=== PATIENT | female | born 1945 | race Caucasian/White ===

== ENCOUNTER → 2024-04-01 06:07 | Outpatient (REF) | payer MEDICARE, OTHER, SELFPAY ==
[2024-04-01 11:45] LABS: TSH 2.92 uIU/ml (0.47-4.68)
== END ==
LOC: HWLAB 06:07
PROVIDERS: ATTENDING PHYSICIAN Internal Medicine Geriatric Medicine
DX: E03.9 Hypothyroidism, unspecified (principal); Z79.899 Other long term (current) drug therapy
CPT/HCPCS: 36415; 84439; 84443

== ENCOUNTER → 2024-12-11 06:20 | Outpatient (REF) | payer MEDICARE, OTHER, SELFPAY ==
[2024-12-11 09:40] LABS: % Basophils 0.7 % (0-2); % Eosinophils 2.7 % (0-6); % Immature Granulocytes 0.2 % (0-0.5); % Lymphocytes 45.5 % (20.5-51.1); % Monocytes 10.5 % (1.7-9.3); % Neutrophils 40.4 % (42.2-75.2); Absolute Eosinophils 0.1 10^3/uL (0-0.7); Absolute Monocytes 0.5 10^3/uL (0.1-0.6); Absolute Neutrophils 1.8 10^3/uL (1.4-6.5); Hematocrit 41.4 % (37.0-47.0); Hemoglobin 13.7 g/dL (12.0-16.0); Mean Corp Hgb Conc. 33.1 g/dL (33.0-37.0); Mean Corpuscular Hgb 32.7 pg (27.0-31.0); Mean Corpuscular Volume 98.8 fL (81.0-99.0); Mean Platelet Volume 9.8 fL (7.4-10.4); Nucleated Red Blood Cells % 0 %; Platelet Count 254 10^3/uL (130-400); Red Blood Cell Count 4.19 10^6/uL (4.20-5.40); Red Cell Dist. Width 13.1 % (11.5-14.5); White Blood Cell Count 4.4 10^3/uL (4.8-10.8)
[2024-12-11 09:44] LABS: ALT (SGPT) 23 U/L (0-35); AST (SGOT) 25 U/L (14-36); Albumin 4.1 g/dl (3.5-5.0); Alkaline Phosphatase 40 U/L (38-126); Blood Urea Nitrogen 18 mg/dl (7-17); Calcium 9.4 mg/dl (8.4-10.2); Carbon Dioxide 27 mmol/L (22-30); Chloride 104 mmol/L (98-107); Glucose 109 mg/dl (70-99); Potassium 3.7 mmol/L (3.5-5.1); Sodium 138 mmol/L (135-145); Total Bilirubin 0.6 mg/dl (0.2-1.3); Total Cholesterol 266 mg/dl (50-199); Total Protein 6.6 g/dl (6.3-8.2); Triglyceride 57 mg/dl (10-149); Very Low Density Lipoprotein 11 mg/dl (0-30); eGFR > 60.00
[2024-12-11 09:58] LABS: Free T4 1.21 ng/dl (0.78-2.19); Vitamin D, 25-OH*** 41.5 ng/mL (30-80)
[2024-12-11 09:59] LABS: HDL Cholesterol 147 mg/dl; LDL Cholesterol, Calculated 108 mg/dl
== END ==
LOC: HWLAB 06:20
PROVIDERS: ATTENDING PHYSICIAN Internal Medicine Geriatric Medicine
DX: E78.2 Mixed hyperlipidemia (principal); E03.9 Hypothyroidism, unspecified; Z79.899 Other long term (current) drug therapy; Z00.00 Encounter for general adult medical examination without abnormal findings
CPT/HCPCS: 36415; 80053; 80061; 82306; 84439; 84443; 85025

== ENCOUNTER → 2024-12-30 08:16 | Outpatient (REF) | payer MEDICARE, OTHER, SELFPAY | LOC: RCS 08:16 | PROVIDERS: ATTENDING PHYSICIAN Internal Medicine Geriatric Medicine | DX: E78.2 Mixed hyperlipidemia (principal); Z00.00 Encounter for general adult medical examination without abnormal findings; E03.8 Other specified hypothyroidism; L71.8 Other rosacea; F43.22 Adjustment disorder with anxiety; G47.09 Other insomnia; M16.9 Osteoarthritis of hip, unspecified; M25.532 Pain in left wrist; R53.83 Other fatigue; R06.09 Other forms of dyspnea | CPT/HCPCS: 93017; 93350 ==